=== PATIENT | female | born 1960 | race Two or more races ===

== ENCOUNTER 2024-02-07 15:50 | Inpatient (IN) | payer OTHER ==
[~2024-02-07] VITALS: Ht 154.9 cm; Wt 135.6 kg
[2024-02-07] MEDS ORDERED: PREMARIN0.45 MG (16:13)
[2024-02-07] MEDS ORDERED: [UNRECOGNIZED DRUG - OTHER] (16:14)
[2024-02-07] MEDS ORDERED: PLAQUENIL (16:14)
[2024-02-07] MEDS ORDERED: KETOROLAC TROMETHAMINE 15 MG VIAL IV ONE (16:45)
[2024-02-07] MEDS ORDERED: HYOSCYAMINE SULFATE 0.125 MG TAB.SUBL SL ONE (16:45)
[2024-02-07] MEDS ORDERED: FAMOTIDINE/PF 20 MG/2 ML VIAL IV PUSH ONE (16:45)
[2024-02-07] MEDS ORDERED: 0.9 % SODIUM CHLORIDE 1,000 ML IV ONE (16:45)
[2024-02-07] MEDS ORDERED: KETOROLAC TROMETHAMINE 30 MG VIAL ONE (16:49)
[2024-02-07] MEDS ORDERED: FAMOTIDINE/PF 20 MG/2 ML VIAL ONE (16:49)
[2024-02-07] MEDS ORDERED: HYOSCYAMINE SULFATE 0.125 MG TAB.SUBL ONE (16:49)
[2024-02-07 17:25] LABS: HEMATOCRIT 33.2 % (36.0-45.00); HEMOGLOBIN 11.6 g/dL (12.0-15.00); MEAN CELL VOLUME 86.1 fL (80.00-100.00); MEAN CORPUSCULAR HEMOGLOBIN 30.1 pg (27.00-32.0); PLATELET COUNT 292 K/uL (150-450); RED BLOOD COUNT 3.86 M/uL (4.00-6.00); RED CELL DISTRIBUTION WIDTH 12.7 % (11.5-14.5)
[2024-02-07 18:24] LABS: ALBUMIN 3.5 gm/dL (3.4-5.0); BILIRUBIN TOTAL 0.34 mg/dL (0.3-1.2); CALCIUM 9.2 mg/dL (8.5-10.1); CREATININE SERUM 0.7 mg/dL (0.55-1.02); GFR 85.07; GLOBULINA 4.1 G/DL (2.4-3.5); POTASSIUM 3.67 mEq/L (3.5-5.1); TOTAL PROTEIN 7.6 gm/dL (6.4-8.2)
[2024-02-07 19:55] LABS: PH,URINE 5.5 (5.0-8.0); URINE APPEARANCE Clear; URINE BILIRRUBIN Negative (NEGATIVE); URINE BLOOD Negative; URINE COLOR Dark Yellow; URINE GLUCOSE Negative (NEGATIVE); URINE LEUKOCYTE Negative; URINE NITRATE Negative; URINE PROTEIN Trace (NEGATIVE); URINE UROBILINOGEN 0.2 E.U./dl
[2024-02-07 19:59] LABS: URINE BACTERIA 7430.1 uL (0.0-1933); URINE EPITHELIAL CELLS 39.7 uL (0.0-38.8)
[2024-02-07 20:27] LABS: URINE CAST 0.61 uL (0.0-1.40); URINE KETONE 40 (NEGATIVE)
[2024-02-07 20:29] LABS: URINE MUCUS HEAVY
[2024-02-07] MEDS ORDERED: PIPERACILLIN/TAZOBACTAM SODIUM 3.375 GM VIAL IV ONE ×2 (22:00→22:03)
[2024-02-07] MEDS ORDERED: DEXTROSE 5 % AND 0.9 % NACL 1,000 ML IV SCH (22:30)
[2024-02-07] MEDS ORDERED: hydrALAZINE HCL 20 MG VIAL IV PRN (22:45)
[2024-02-07] MEDS ORDERED: ONDANSETRON HCL 4 MG in 0.9 % SODIUM CHLORIDE 50 ML IV PRN (22:45)
[2024-02-07] MEDS ORDERED: ACETAMINOPHEN 500 MG GEL..CAP PO PRN (22:45)
[2024-02-08] MEDS ORDERED: MEPERIDINE HCL/PF 25 MG/ML VIAL IM SCH
[2024-02-08] MEDS ORDERED: PIPERACILLIN/TAZOBACTAM SODIUM 3.375 GM in 0.9 % SODIUM CHLORIDE 100 ML IV SCH
[2024-02-08 07:39] LABS: HEMATOCRIT 30.2 % (36.0-45.00); HEMOGLOBIN 10.6 g/dL (12.0-15.00); MEAN CELL VOLUME 88.8 fL (80.00-100.00); MEAN CORPUSCULAR HEMOGLOBIN 31.2 pg (27.00-32.0); MEAN CORPUSCULAR HGB CONC 35.2 g/dl (32.0-36.0); PLATELET COUNT 253 K/uL (150-450); RED BLOOD COUNT 3.41 M/uL (4.00-6.00); RED CELL DISTRIBUTION WIDTH 12.5 % (11.5-14.5)
[2024-02-08 08:15] LABS: ALBUMIN 3.1 gm/dL (3.4-5.0); BILIRUBIN TOTAL 0.41 mg/dL (0.3-1.2); BILIRUBIN,CONJUGATED 0.1 mg/dL (0.0-0.2); BILIRUBIN,UNCONJUGATED 0.31 mg/dL (0.0-0.6); CALCIUM 8.1 mg/dL (8.5-10.1); CHOL HDL RATIO 3.4 (0-5.0); CREATININE SERUM 0.63 mg/dL (0.55-1.02); GFR 96.07; GLOBULINA 3.5 G/DL (2.4-3.5); POTASSIUM 3.83 mEq/L (3.5-5.1); TOTAL PROTEIN 6.6 gm/dL (6.4-8.2)
[2024-02-08 08:27] LABS: C-REACTIVE PROTEIN 12.7 MG/DL (0.00-0.29)
[2024-02-08 08:36] LABS: INR 0.98; PARTIAL THROMBOPLASTIN TIME 35.8 SECONDS (22.0-34.0); PROTHROMBIN TIME 10.3 SECONDS (9.0-11.5)
[2024-02-08 08:58] LABS: ERYTHROCYTE SEDIMENTATION RATE 42 mm/hr
[2024-02-08] MEDS ORDERED: FAMOTIDINE/PF 20 MG in 0.9 % SODIUM CHLORIDE 8 ML IV PUSH SCH (09:00)
[2024-02-08] MEDS ORDERED: HYDROXYCHLOROQUINE SULFATE 200 MG TABLET PO SCH (09:00)
[2024-02-08] MEDS ORDERED: SUGAMMADEX SODIUM 200 MG/2 ML VIAL IV ONE (12:00)
[2024-02-08] MEDS ORDERED: SIMETHICONE 125 MG CAPSULE PO SCH (13:00)
[2024-02-08] MEDS ORDERED: KETOROLAC TROMETHAMINE 30 MG VIAL IV PRN (13:00)
[2024-02-08] MEDS ORDERED: PATIENTS OWN MEDICATION (MEDICAMENTO EN PISO) PO SCH (17:00)
[2024-02-08] MEDS ORDERED: SUCRALFATE 1 G TABLET PO SCH (17:00)
[2024-02-08] MEDS ORDERED: ONDANSETRON HCL 2 MG/ML VIAL ONE (21:56)
[2024-02-09] MEDS ORDERED: FAMOTIDINE/PF 20 MG/2 ML VIAL ONE (08:09)
[2024-02-09 08:34] LABS: PH,URINE 5.5 (5.0-8.0); URINE APPEARANCE Clear; URINE BILIRRUBIN Negative (NEGATIVE); URINE BLOOD Negative; URINE COLOR Yellow; URINE GLUCOSE Negative (NEGATIVE); URINE KETONE Trace (NEGATIVE); URINE LEUKOCYTE Negative; URINE NITRATE Negative; URINE PROTEIN Trace (NEGATIVE)
[2024-02-09 08:39] LABS: URINE BACTERIA 16.3 uL (0.0-1933); URINE EPITHELIAL CELLS 36.4 uL (0.0-38.8); URINE RBC 8.8 uL (0.0-20.8); URINE WBC 16.3 uL (0.0-23.2)
[2024-02-09 08:58] LABS: URINE CAST 0.61 uL (0.0-1.40)
[2024-02-09] MEDS ORDERED: LACTOBACILLUS ACIDOPHILUS 1 CAP CAP PO SCH (09:00)
[2024-02-10] MEDS ORDERED: METOCLOPRAMIDE HCL 10 MG in 0.9 % SODIUM CHLORIDE 50 ML IV ONE (08:15)
[2024-02-10] MEDS ORDERED: LACTULOSE 20 G/30 ML BLIST.PACK PO NR (08:15)
[2024-02-10] MEDS ORDERED: MINERAL OIL 30 ML BLIST.PACK PO NR (08:15)
[2024-02-10] MEDS ORDERED: METOCLOPRAMIDE HCL 10 MG in 0.9 % SODIUM CHLORIDE 50 ML IV NR (09:30)
== END 2024-02-10 14:13 | disposition home or self-care (01) | DRG 399 ==
LOC: ER 15:50 → MEDI 22:44
PROVIDERS: General Practice; Surgery; ADMIT Internal Medicine; ATTEND Internal Medicine
PROC: BW21YZZ Computerized Tomography (CT Scan) of Abdomen and Pelvis using Other Contrast (ICD-10-PCS; 2024-02-07)
PROC: 0DTJ4ZZ Resection of Appendix, Percutaneous Endoscopic Approach (ICD-10-PCS; principal; 2024-02-08 10:15)
DX: K35.80 Unspecified acute appendicitis (principal)